=== PATIENT | female | born 1940 | race Caucasian/White ===

== ENCOUNTER → 2016-09-02 | Outpatient (CLI) | payer OTHER ==
[2016-09-02 15:16] LABS: BILIRUBIN,TOTAL 1.1 mg/dL (0.3-1.2); BUN/CREATININE RATIO 17.5 (6-20); CALCIUM 9.1 mg/dL (8.7-10.7); CREATININE 1.2 mg/dL (0.50-1.20); POTASSIUM 4.3 meq/L (3.8-5.2); TOTAL PROTEIN 6.3 g/dL (6.1-8.0)
== END ==
LOC: LAB 14:14
PROVIDERS: ATTEND Internal Medicine
DX: K74.69 Other cirrhosis of liver (principal); I10 Essential (primary) hypertension
CPT/HCPCS: 36415; 80053; 82105

== ENCOUNTER → 2016-10-21 | Outpatient (CLI) | payer OTHER ==
[2016-10-21 08:03] LABS: BASOPHILS # (AUTO) 0.06 10*3/UL; BASOPHILS % (AUTO) 1.6 % (0-1); EOSINOPHILS # (AUTO) 0.19 10*3/UL; EOSINOPHILS % (AUTO) 5.2 % (0-8); HEMATOCRIT 33.4 % (37.0-47.0); HEMOGLOBIN 11.2 g/dL (12.0-16.0); MEAN CORPUSCULAR HEMOGLOBIN 32.5 PG (27-31); MEAN CORPUSCULAR HGB CONC 33.5 g/dL (33-37); MEAN CORPUSCULAR VOLUME 96.8 FL (81-99); MEAN PLATELET VOLUME 8.9 FL (7.4-12.2); MONOCYTES # (AUTO) 0.63 10*3/UL (0.3-0.8); MONOCYTES % (AUTO) 17.2 % (5-15); NEUTROPHILS # (AUTO) 1.87 10*3/UL; NEUTROPHILS % (AUTO) 51.1 % (50-80); PLATELET MORPHOLOGY COMMENT NORMAL MORPHOLOGY (NORM); RBC MORPHOLOGY COMMENT NORMAL MORPHOLOGY (NORM); RED BLOOD COUNT 3.45 10^6/uL (4.20-5.40); WBC MORPHOLOGY COMMENT NORMAL MORPHOLOGY (NORM)
== END ==
LOC: LAB 07:51
PROVIDERS: ATTEND Internal Medicine
DX: K74.69 Other cirrhosis of liver (principal); E03.9 Hypothyroidism, unspecified; I10 Essential (primary) hypertension
CPT/HCPCS: 36415; 85025; 99214; G0463

== ENCOUNTER → 2017-01-11 | Outpatient (CLI) | payer OTHER ==
[2017-01-11 08:12] LABS: BASOPHILS # (AUTO) 0.08 10*3/UL; BASOPHILS % (AUTO) 1.9 % (0-1); EOSINOPHILS # (AUTO) 0.25 10*3/UL; EOSINOPHILS % (AUTO) 5.9 % (0-8); HEMATOCRIT 35.5 % (37.0-47.0); HEMOGLOBIN 11.9 g/dL (12.0-16.0); LYMPHOCYTES # (AUTO) 0.96 10*3/uL; MEAN CORPUSCULAR HEMOGLOBIN 32.3 PG (27-31); MEAN CORPUSCULAR HGB CONC 33.5 g/dL (33-37); MEAN CORPUSCULAR VOLUME 96.5 FL (81-99); MEAN PLATELET VOLUME 9.2 FL (7.4-12.2); MONOCYTES # (AUTO) 0.73 10*3/UL (0.3-0.8); MONOCYTES % (AUTO) 17.3 % (5-15); RED BLOOD COUNT 3.68 10^6/uL (4.20-5.40)
[2017-01-11 08:16] LABS: PLATELET MORPHOLOGY COMMENT NORMAL MORPHOLOGY (NORM); RBC MORPHOLOGY COMMENT NORMAL MORPHOLOGY (NORM); WBC MORPHOLOGY COMMENT NORMAL MORPHOLOGY (NORM)
[2017-01-11 08:21] LABS: BUN/CREATININE RATIO 18.33 (6-20); SERUM ALBUMIN 2.9 g/dL (3.5-4.8)
--- NOTE | 2017-01-11 10:20 | DI ---
CT ABD W/WO CN AND PELVIS W/W0,01/11/2017 7:47 AM: Clinical History: Liver cell carcinoma. Previous Exam: January 03, 2016 Findings: The lung bases are clear. The liver is shrunken and irregular consistent with severe cirrhosis. [address] is performed, and demonstrates no abnormally enhancing lesion. There are multiple ar eas where the hepatic arteries are prominent, but this is a normal finding in a patient with portal h ypertension as vascular flow to the liver is impeded. There is recanalization of the umbilical vein. There is a large amount of ascites throughout the abdomen. The spleen, pancreas, adrenals and kidneys are unremarkable. Diffuse degenerative changes of the spin e are seen. There are prominent small bowel loops. The uterus and adnexa are unremarkable. A few peripheral vascular calcifications are seen. 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 Degenerative changes of the spine are seen. The aorta and its major branches are grossly normal. Impression: 1. Hepatic cirrhosis and a large amount of abdominal ascites with portal hypertension and multiple ve nous collaterals. 2. No evidence of hepatocellular carcinoma on this exam.
== END ==
LOC: CT 07:42
DX: C22.0 Liver cell carcinoma (principal)
CPT/HCPCS: 36415; 74178; 80053; 82105; 85025; 85610

== ENCOUNTER 2017-05-27 13:17 | Inpatient (IN) ==
[2017-05-27] MEDS ORDERED: ONDANSETRON 4 MG/2 ML VIAL IVP ONE ×2 (13:40→14:44)
[2017-05-27] MEDS ORDERED: MORPHINE SULFATE 4 MG/1 ML IVP ONE (13:40)
--- NOTE | 2017-05-27 13:43 | PDOC ---
Abdomen/Flank HPI - General Chief Complaint: Abdomen Pain Stated Complaint: abdominal pain Date Seen by Provider: 05/27/17 Time Seen by Provider: 13:30 Source: POSITIVE: Patient Exam Limitations: POSITIVE: No limitations Nurse's Notes Reviewed & Considered: Yes - History of Present Illness Initial Comments: This is a pleasant 77-year-old female complaining of left upper quadrant abdominal pain with distention. Patient has increasing abdominal distention with nausea and abdominal pain of the left upper quadrant. She has a history of hepatoma and unknown procedures. She denies any headache, no cough, no chest pain or shortness of breath, no hematuria dysuria, no rashes. Body Location Affected: REPORTS: Abdomen Timing: REPORTS: Gradual Duration: Unknown Severity: Moderate Quality: REPORTS: "Pain" Abdominal Pain Onset Location: REPORTS: Generalized abdomen Abdominal Pain Radiation: REPORTS: LUQ Context: REPORTS: None Modifying Factors: improves with: Nothing Associated Symptoms: REPORTS: Nausea Similar Symptoms Previously: Yes Recent Care Received: REPORTS: Denies Any Prior Injuries Related to Current Complaint?: No - Patient Home Medications Home Medications: Home Medications Bacillus Coagulans [Digestive Advantage] 1 ea PO DAILY tab 02/10/16 famotidine 20 mg tablet 20 mg PO QDAY tab 04/19/17 levothyroxine 50 mcg tablet 50 mcg PO QDAY #90 tab 04/19/17 multivit with syvcswfx-ivgx-WD-lutein 8 mg iron-400 mcg-300 mcg tablet 1 tab PO QDAY tab 04/19/17 spironolactone 50 mg tablet 50 mg PO QDAY #90 tab 04/19/17 - Patient Allergies Allergies/Adverse Reactions: Allergies 3 Allergy/AdvReac Type Severity Reaction Status Date / Time Sulfa (Sulfonamide Allergy Intermediate HIVES Verified 05/27/17 17:47 Antibiotics) Past Medical History - heen HEENT History: Hard of Hearing, Dentures/Partials Additional HEENT History: BILAT HEARING AIDS Cardiovascular History: Hypertension Respiratory History: Denies History Gastrointestinal History: GERD, Gallbladder Disease, Other (please comment) Additional Gastrointestinal History: Non-alcohol related cirrhosis. 2011 GALLSTONE PANCREATITIS. BLACK STOOL Genitourinary History: Denies History Endocrine History: Hypothyroidism Musculoskeletal History: Denies History Prosthesis or Implant: No Neurological History: Denies History Blood Disorders: Denies History Additional Blood Disorders History: HX OF HEMACHROMATOSIS/ HX OF HEPATITIS Psychiatric History: Denies History History of Sexually Transmitted Diseases: No Cancer History: Denies History In Past Year Been Physically Harmed or Verbally Threatened: No History of MDRO: No History of Other Communicable Diseases: No Tobacco Use: Never Smoker Alcohol Use: None In the Past 12 Months, Have Used or Abuse Any Substance: None Previous Surgical History: Yes Type / Date of Surgery: LEEP, DAVID/ COLONOSCOPY/ EGD/ CYST REMOVED FROM THROAT / TONSILLECTOMY Anesthesia Reactions: No Malignant Hyperthermia: No Significant Family History: Asthma, Heart disease, COPD, Hypertension, Lung disease ROS - Limitations ROS Limitations: No Limitations Constitution: REPORTS: Denies Symptoms Cardiovascular: REPORTS: Denies Cardiac Symptoms Respiratory: REPORTS: Denies Resp Symptoms Neurological: REPORTS: Denies Neuro Symptoms Gastrointestinal: REPORTS: Abdominal Pain, Nausea, Other (Distention) Endocrine: REPORTS: Denies Symptoms Musculoskeletal: REPORTS: Denies MS Symptoms Genitourinary: REPORTS: Denies Symptoms Eyes: REPORTS: Denies Symptoms ENT: REPORTS: Denies Symptoms Skin: REPORTS: Denies Skin Symptoms Lympathic: REPORTS: Denies Lympathic Symptoms Immunologic: POSITIVE: Denies Symptoms Psychiatric: POSITIVE: Denies Psych Symptoms Abdominal/Flank Pain PE - General Appearance General Appearance: POSITIVE: Alert, Cooperative, No Acute Distress, No Evidence of Trauma - HEENT HEENT: POSITIVE: Head Inspection Nml, Eyes Inspection Nml, Ears Inspection Nml, Nose Inspection Nml, Oral/Dental Inspect. Nml, Pharynx Inspect. Nml, PERRL, EOMI - Neck Neck: POSITIVE: Normal Inspection, No Apparent Injury - Respiratory Respiratory: POSITIVE: No Respiratory Distress, Breath Sounds Normal, Chest Non- Tender - Cardiovascular Cardiovascular: POSITIVE: Regular Rate and Rhythm, Heart Sounds Normal, Strong Pulses Peripheral Pulses: Radial (L): 4+ - Chest Chest: POSITIVE: Non Tender - Abdomen Abdomen: Normal Bowel Sounds: (All Quadrants), Denies Tenderness: (RUQ), (RLQ), (LLQ), No Splenomegaly: (All Quadrants), No Guarding: (All Quadrants), No Rebound: (All Quadrants), No Palpable Pulse: (All Quadrants), No Palpabale Mass : (All Quadrants), Tenderness Noted: (LLQ), Distention: (All Quadrants) - Back Back: POSITIVE: Normal Inspection - Skin Skin: POSITIVE: Intact, Normal For Race, Warm, Dry, No Rash - Extremities Extremity: Non-Tender: (All Extremities), Normal ROM: (All Extremities), Normal Inspection: (All Extremities), Pelvis Stable: (All Extremities) - Neurological Neurological: POSITIVE: Oriented X3, Motor Normal, Sensation Normal - Psychological Psychiatric: POSITIVE: Affect Appropriate, Mood Appropriate Abdomen Progress - Results Reviewed by me Xrays/CTs/US Reviewed by me: Yes Discussed with Radiologist: Yes Lab Results Reviewed by Me: Yes CBC and BMP: 05/27/17 13:45 05/27/17 13:45 - Patient's Progress Pain Medication Addressed: POSITIVE: Yes Status: POSITIVE: Improved MDM / ED Course: Patient was evaluated, IV started, blood drawn and sent to the lab for studies, CT examination of her abdomen and pelvis was obtained. Findings: CT scan shows massive ascites and anasarca. CBC shows anemia and thrombocytopenia. Gamma GT is elevated, AST and ALT are elevated. Bilirubin is 1.8. Lipase and amylase are normal. INR is normal. Assessment: Ascites. Plan: Admission, plan for paracentesis. - Consult Consult (If Yes, Name of Consulting MD & Time Called): Yes (Dr. Allison, 16:30) Consulting MD will see pt:: POSITIVE: [facility] [place] Admit Counseled: POSITIVE: Patient, Family, RE: Lab Results, RE: Radiology Results, RE : DX Patient Care Time - Estimated PCT Patient Care Time (In Minutes): 30 Vital Signs - Recent Vital Signs Vital Signs: Vital Signs (Last 8 hours) Temp Pulse Resp BP Pulse Ox 05/27/17 13:22 96.8 F 95 18 139/99 95 - VS Reviewed Vital Signs Reviewed: Yes Discharge Clinical Impression: Hepatic cirrhosis, Ascites, Abdominal pain Discharge Disposition: Admit to Inpatient Condition: Fair Date Decision to Admit to Inpatient: 05/27/17 Time Decision to Admit to Inpatient: 16:31
[2017-05-27 13:47] LABS: BASOPHILS # (AUTO) 0.09 10*3/UL; BASOPHILS % (AUTO) 1.8 % (0-1); EOSINOPHILS # (AUTO) 0.21 10*3/UL; EOSINOPHILS % (AUTO) 4.1 % (0-8); Hematocrit [HCT] 32.3 % (37.0-47.0); Hemoglobin [HGB] 10.9 g/dL (12.0-16.0); LYMPHOCYTES # (AUTO) 1.09 10*3/uL; MEAN CORPUSCULAR HEMOGLOBIN 32.5 PG (27-31); MEAN CORPUSCULAR HGB CONC 33.7 g/dL (33-37); MEAN CORPUSCULAR VOLUME 96.4 FL (81-99); MEAN PLATELET VOLUME 9.2 FL (7.4-12.2); MONOCYTES % (AUTO) 19.5 % (5-15); NEUTROPHILS # (AUTO) 2.72 10*3/UL; NEUTROPHILS % (AUTO) 53.1 % (50-80); RED BLOOD COUNT 3.35 10^6/uL (4.20-5.40)
[2017-05-27 14:02] LABS: RBC MORPHOLOGY COMMENT NORMAL MORPHOLOGY (NORM)
[2017-05-27 14:03] LABS: PLATELET MORPHOLOGY COMMENT NORMAL MORPHOLOGY (NORM); WBC MORPHOLOGY COMMENT NORMAL MORPHOLOGY (NORM)
[2017-05-27 14:04] LABS: BLOOD UREA NITROGEN 19 mg/dL (7-22); BUN/CREATININE RATIO 17.27 (6-20); GAMMA GLUTAMYL TRANSPEPTIDASE 99 IU/L (8-78); LIPASE 270 IU/L (23-300); MAGNESIUM 1.9 mg/dL (1.6-2.4); SERUM ALBUMIN 2.6 g/dL (3.5-4.8)
--- NOTE | 2017-05-27 15:32 | DI ---
CT ABDOMEN SCAN WITH IV CONTRAST, 05/27/2017 1:40 PM : Clinical History: Abdominal pain with distention. The history on the previous exam indicated the jamila ent had liver cell carcinoma. Previous Exam: 04/21/2017. Scans are performed from the lower lung bases through the liver and kidneys with IV contrast. 55 ml o f Isovue 300 was injected IV. The lung bases are clear. The liver is small and has a nodular pattern. The overall size is similar t o the previous exam. In the distal portion of the left lower liver, calcific densities are present an d these may actually represent iatrogenic embolic material for treatment of the liver cell cancer. No new lesion is seen in the liver. The patient is status post cholecystectomy. There is mild splenomeg ruslan but the spleen appears normal and the portal vein is patent. No esophageal, gastric, or splenic v arices are seen. There is a large varix between the portal vein extending through the region of the f alciform ligament and then into the abdominal wall. The adrenal glands and the pancreas are normal. B oth kidneys are normal in size, shape, position and contour. There is no hydronephrosis or hydrourete r. No renal or ureteral calculi are present. There are no abnormal retrocrural or periaortic nodes. M assive ascites is present in the amount is greater than on the previous study. The patient has also d eveloped anasarca since the last exam. READIN. Massive ascites with interval development of anasarca. 2. Small nodular liver consistent with cirrhosis. The patient may have had iatrogenic embolization o f a liver tumor in the left lobe. The portal vein is patent. No splenic or obvious gastric or esophag eal varices are seen but there is a large varix extending from the anterior abdominal wall into the l eft through the falciform ligament and then joining the portal vein. There is mild splenomegaly. CT PELVIS SCAN WITH IV CONTRAST, 05/27/2017 1:40 PM: Clinical History: See above. Previous Exam: 04/21/2017. Scans are performed from just superior to the umbilicus to the symphysis pubis with IV contrast. This is the same bolus of contrast used for the CT scans of the abdomen. Massive ascites is present and this is greater than on the previous exam. The appendix is not identif ied with certainty but there is no inflammatory mass either in the cecum or in the right lower quadra nt. The small bowel, terminal ileum, and ileocecal valve are normal. The colon is also normal. There are no hernias. The uterus and both ovaries are atrophic but normal. READING: Massive ascites. This has increased since the last exam.
[2017-05-27] MEDS ORDERED: CALCIUM CARBONATE 500 MG (TUMS) CHEWABLE TABLET PO PRN (17:32)
[2017-05-27] MEDS ORDERED: DOCUSATE 100 MG CAPSULE PO PRN (17:32)
[2017-05-27] MEDS ORDERED: NORMAL SALINE 10 ML SYRINGE FLUSH IVP PRN (17:32)
[2017-05-27] MEDS ORDERED: ONDANSETRON 4 MG/2 ML VIAL IVP PRN (17:32)
[2017-05-27] MEDS ORDERED: LIDOCAINE W/ SODIUM BICARB 0.5 ML SYR SUBD PRN (17:32)
[2017-05-27] MEDS ORDERED: Albumin Human Soln 25% 25 GM/100 ML IV.SOLN IV ONE (21:27)
[2017-05-27 21:36] LABS: WBC, BODY FLUID 0.079 10*3/uL
--- NOTE | 2017-05-27 22:13 | PDOC ---
HPI - History of Present Illness Date and Time of Service: 05/27/2017, 2210 Chief Complaint: Abdominal pain History of Present Illness: This very pleasant 77 year old female with history of cryptogenic cirrhosis and liver cancer treated with radiation who came in with worsening abdominal pain and sharp discomfort on the left side. She had a CT scan in the emergency room of the abdomen and pelvis that showed increase in the amount of ascites from April. The patient denied any fever, nausea, vomiting, diarrhea, or constipation. She has not had any blood in the stool. She had a paracentesis a couple of years ago in December 2015 and apparently they took about 900 mL off on my review of the record. She has not had problems with ascites since that time to her knowledge. She is on spironolactone. She recently saw her liver specialist, Dr. Montes De Oca at [facility] in [place], and was told that she should revisit him in about a year. She is not on any active transplant liver list at this time. The patient has a meld score of 12, and has not had any problems with encephalopathy or other complications of liver disease. Past Medical History Medical History: 1. 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 2. Hypertensive gastropathy. 3. Gastritis. 4. Hypertension. 5. By CT scan tonight with stomach varices, patient likely has portal hypertension as well. I have. 6. Hypothyroidism. 7. Liver cancer, status post radiation therapy in [place] Surgical History: History of previous cholecystectomy. Liver biopsy Family History: Reviewed an Not Pertinent Pertinent Family History: No family history of heart disease Past Social History: Does not smoke or drink. 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 Has healthy children. Is . Tobacco Use: Never Smoker In the Past 12 Months, Have Used or Abuse Any of the Following Substance: None Alcohol Use: None Medication / Allergies Home Medications: Home Medications Medication Instructions Recorded Confirmed Type Bacillus Coagulans [Digestive 1 ea PO DAILY tab 02/10/16 05/27/17 History Advantage] famotidine 20 mg tablet 20 mg PO QDAY tab 04/19/17 05/27/17 History levothyroxine 50 mcg tablet 50 mcg PO QDAY #90 tab 04/19/17 05/27/17 Rx multivit with 1 tab PO QDAY tab 04/19/17 05/27/17 History mhavkjcy-gdxt-TK-lutein 8 mg iron-400 mcg-300 mcg tablet spironolactone 50 mg tablet 50 mg PO QDAY #90 tab 04/19/17 05/27/17 Rx Allergies/Adverse Reactions: Allergies 3 Allergy/AdvReac Type Severity Reaction Status Date / Time Sulfa (Sulfonamide Allergy Intermediate HIVES Verified 05/27/17 17:47 Antibiotics) Review of Systems - Review of Systems All Systems: Reviewed & No Additional Complaints Except as Stated (I did a 12 point review systems and it was negative other than that discussed above in history present illness. The only other symptom the patient really complained of was some mild edema in her lower extremities.) Exam - Vitals Vital Signs: Vital Signs Temperature 98.3 F Temperature Source Oral Pulse Rate [Pulse Oximeter 79 Left] Pulse Rate 74 Respiratory Rate 20 Blood Pressure [Left Arm] 123/43 Blood Pressure 115/67 Pulse Ox 97 Oxygen Flow Rate 2 Oxygen Delivery Method Nasal Cannula Height 4 ft 11 in Weight 129 lb 9.6 oz - General General Appearance: No Acute Distress, Cooperative - Head Head Exam: Normal Inspection, Normocephalic, Atraumatic - Eye Eye Exam: POSITIVE: No Scleral Icterus - ENT ENT Exam: POSITIVE: Mucous Membranes Moist - Neck Neck Exam: Normal Inspection, No Tenderness, No Lymphadenopathy, No Thyromegaly - Respiratory Respiratory Exam: POSITIVE: Breathing Non Labored, Normal to Percussion and Palpation, Coarse Breath Sounds (In the bases bilaterally) - Cardiovascular Cardiovascular Exam: POSITIVE: RRR, No Murmur, No Clicks, No Gallops, No Rubs, No JVD - GI/Abdominal GI/Abdominal Exam: POSITIVE: Normal Bowel Sounds, Positive for Ascites Additional GI/Abdominal Exam Details: Positive for ascites and some mild tenderness in left upper quadrant with palpation. - Rectal Rectal Exam: POSITIVE: Deferred - External Exam: POSITIVE: Deferred Exam: POSITIVE: Deferred - Extremities Extremities Exam: POSITIVE: No Clubbing Present, No Cyanosis Present Additional Extremities Exam Details: Has trace lower extremity edema bilaterally. - Back Back Exam: POSITIVE: No CVA Tenderness - Neurological Neurological Exam: POSITIVE: Alert, Oriented x 3, No Facial Droop, Speech Intact / Clear, Moves All Extremities Equally - Psychiatric Psychiatric Exam: POSITIVE: Normal Affect, Normal Mood - Central Line Examination Central Line Present on Admission: No Results - Labs CBC and BMP: 05/27/17 13:45 05/27/17 13:45 Additional Lab Results: Laboratory Results 05/27/17 05/27/17 05/27/17 Range/Units 13:45 13:45 13:45 WBC 5.12 (4.8-10.8) 10^3/uL RBC 3.35 L (4.20-5.40) 10^6/uL Hgb 10.9 L (12.0-16.0) g/dL Hct 32.3 L (37.0-47.0) % MCV 96.4 (81-99) FL MCH 32.5 H (27-31) PG MCHC 33.7 (33-37) g/dL RDW Std Deviation 54.9 H (39-50) fL RDW Coeff of Jacki 16.2 H (11.5-14.5) % Plt Count 134 L (140-350) 10*3/uL MPV 9.2 (7.4-12.2) FL Immature Gran % (Auto) 0.2 (0-5) % Neut % (Auto) 53.1 (50-80) % Lymph % (Auto) 21.3 (10-50) % Ellis % (Auto) 19.5 H (5-15) % Eos % (Auto) 4.1 (0-8) % Baso % (Auto) 1.8 H (0-1) % Immature Gran # (Auto) 0.01 10*3/UL Neut # (Auto) 2.72 10*3/UL Lymph # (Auto) 1.09 10*3/uL Ellis # (Auto) 1.00 H (0.3-0.8) 10*3/UL Eos # (Auto) 0.21 10*3/UL Baso # (Auto) 0.09 10*3/UL WBC Morphology Comment Normal morphology (NORM) Plt Morphology Comment Normal morphology (NORM) RBC Morph Comment Normal morphology (NORM) PT 13.7 H (9.7-11.4) secs INR 1.29 (0.00-5.90) N/A Sodium 137 (135-145) meq/L Potassium 4.0 (3.8-5.2) meq/L Chloride 107 (98-112) meq/L Carbon Dioxide 23 (23-33) meq/L Anion Gap 7 (5-20) BUN 19 (7-22) mg/dL Creatinine 1.1 (0.50-1.20) mg/dL BUN/Creatinine Ratio 17.27 (6-20) Glucose 100 (78-110) mg/dL Calculated Osmolality 285.0 (267-292) mOsm/kg Calcium 8.8 (8.7-10.7) mg/dL Magnesium 1.9 (1.6-2.4) mg/dL Total Bilirubin 1.8 H (0.3-1.2) mg/dL GGT 99 H (8-78) IU/L AST 116 H (8-39) IU/L ALT 54 H (9-52) IU/L Alkaline Phosphatase 164 H (38-126) IU/L Total Protein 6.7 (6.1-8.0) g/dL Albumin 2.6 L (3.5-4.8) g/dL Globulin 4.1 (2.50-4.10) g/dL Albumin/Globulin Ratio 0.60 L (1.3-2.0) mg/g Amylase 101 (30-110) U/L Lipase 270 (23-300) IU/L Fluid WBC 10*3/uL Fluid RBC 10*6/uL Fluid Polynuclear WBCs % Fluid Mononuclear WBCs % Peritoneal Color Peritoneal Appearance Peritoneal Volume mL 05/27/17 Range/Units 21:25 WBC (4.8-10.8) 10^3/uL RBC (4.20-5.40) 10^6/uL Hgb (12.0-16.0) g/dL Hct (37.0-47.0) % MCV (81-99) FL MCH (27-31) PG MCHC (33-37) g/dL RDW Std Deviation (39-50) fL RDW Coeff of Jacki (11.5-14.5) % Plt Count (140-350) 10*3/uL MPV (7.4-12.2) FL Immature Gran % (Auto) (0-5) % Neut % (Auto) (50-80) % Lymph % (Auto) (10-50) % Ellis % (Auto) (5-15) % Eos % (Auto) (0-8) % Baso % (Auto) (0-1) % Immature Gran # (Auto) 10*3/UL Neut # (Auto) 10*3/UL Lymph # (Auto) 10*3/uL Ellis # (Auto) (0.3-0.8) 10*3/UL Eos # (Auto) 10*3/UL Baso # (Auto) 10*3/UL WBC Morphology Comment (NORM) Plt Morphology Comment (NORM) RBC Morph Comment (NORM) PT (9.7-11.4) secs INR (0.00-5.90) N/A Sodium (135-145) meq/L Potassium (3.8-5.2) meq/L Chloride (98-112) meq/L Carbon Dioxide (23-33) meq/L Anion Gap (5-20) BUN (7-22) mg/dL Creatinine (0.50-1.20) mg/dL BUN/Creatinine Ratio (6-20) Glucose (78-110) mg/dL Calculated Osmolality (267-292) mOsm/kg Calcium (8.7-10.7) mg/dL Magnesium (1.6-2.4) mg/dL Total Bilirubin (0.3-1.2) mg/dL GGT (8-78) IU/L AST (8-39) IU/L ALT (9-52) IU/L Alkaline Phosphatase (38-126) IU/L Total Protein (6.1-8.0) g/dL Albumin (3.5-4.8) g/dL Globulin (2.50-4.10) g/dL Albumin/Globulin Ratio (1.3-2.0) mg/g Amylase (30-110) U/L Lipase (23-300) IU/L Fluid WBC 0.079 10*3/uL Fluid RBC 0.002 10*6/uL Fluid Polynuclear WBCs 16.5 % Fluid Mononuclear WBCs 83.5 % Peritoneal Color Clear Peritoneal Appearance Clear Peritoneal Volume 16 mL - Imaging Status: Image Reviewed by Me (I looked at the CT scan, it's positive for small, nodular liver. There is ascites present.) Assessment and Plan - Patient Problems (1) Hepatic cirrhosis Current Visit: No Status: Acute Code(s): K74.60 - Unspecified cirrhosis of liver Qualifiers: Hepatic cirrhosis type: unspecified hepatic cirrhosis Ascites presence: with ascites Qualified Code(s): K74.60 - Unspecified cirrhosis of liver (2) Ascites Current Visit: Yes Status: Acute Code(s): R18.8 - Other ascites Qualifiers: Ascites type: other type Qualified Code(s): R18.8 - Other ascites (3) Liver cancer Current Visit: Yes Status: Suspected Code(s): C22.9 - Malignant neoplasm of liver, not specified as primary or secondary Qualifiers: Liver malignancy type: hepatocellular carcinoma Qualified Code(s): C22.0 - Liver cell carcinoma (4) Hypothyroidism Current Visit: No Status: Acute Code(s): E03.9 - Hypothyroidism, unspecified Qualifiers: Hypothyroidism type: acquired Qualified Code(s): E03.9 - Hypothyroidism, unspecified - Assessment / Plan Additional Assessment/Plan Details: Admit the patient. We discussed paracentesis, risks and benefits, see procedure note which is separate and unique of this documentation and has no overlap in terms of time. Make sure the patient doesn't have spontaneous bacterial peritonitis. Fluid studies suggest at this point that that is not the case. Also test for cytology. Change diuretics to Lasix and spironolactone at a 20 mg of Lasix to 50 mg of spironolactone ratio. Add propranolol with noted there is see on CT scan of abdomen and pelvis. Give albumin post-paracentesis today. We'll try to discuss with transplant hepatology team tomorrow, and see if they have any further recommendations. Check alpha-fetoprotein. I did discuss the above plan with the patient, and her family members. They agree with the plan. Her son and [id number] were present. The patient is full code.
--- NOTE | 2017-05-27 22:24 | PROCEDURE1 ---
Procedure - - Date and Time of Service: 05/27/2017, 2224 Procedure Performed: Paracentesis : With Imaging Procedure Note: Procedure performed: Paracentesis Consent was obtained from the patient. Indication for procedure was the following: Indication for procedure: [Ascites/cirrhosis/history of liver cancer/abdominal pain, question SBP] Description of procedure: The patient was prepped and draped in the usual fashion after ultrasound guidance helped us isolate the largest ascites pocket we could find. In this case it was located at [right mid and lower quadrant], and this was marked with the procedure marker. Chlorhexidine was used to cleanse the skin. Lidocaine was used for local anesthesia. A #10 blade was then used perform a small dermatotomy. A fenestrated catheter with a surrounding large-bore needle was then inserted using a Z-line approach with a 60 mL syringe attached. When withdrawing on the 60 mL syringe, peritoneal fluid was noted and 40 mL was drawn and then removed along with the large bore needle. The catheter was left in peritoneal space. Peritoneal fluid in the syringe was sent for analysis in a purple top, green top, and red top tube, and Vacutainer bottles. The fluid appeared [clear and yellow] on my view. A total of [480 mL] was withdrawn via Vacutainer bottles. The catheter was then withdrawn. The insertion site was dressed with gauze and Tegaderm, with no evidence of peritoneal leak or blood loss. I did check the left quadrant again and very small fluid pockets were noted. Despite multiple position changes, we cannot get the patient to drain any further during the procedure. We also applied pressure to the abdomen to try and get further fluid out and that did not work. Anesthesia: Local with lidocaine. Estimated blood loss: None Disposition: Patient is admitted to the hospital on the medical floor. Complications: None apparent at time of procedure. Fluid studies do not support spontaneous bacterial peritonitis post procedure.
[2017-05-28] MEDS: LEVOTHYROXINE 50 MCG TABLET PO SCH (04:45)
[2017-05-28 06:43] LABS: BASOPHILS # (AUTO) 0.03 10*3/UL; BASOPHILS % (AUTO) 0.7 % (0-1); EOSINOPHILS % (AUTO) 2.2 % (0-8); Hematocrit [HCT] 26.8 % (37.0-47.0); Hemoglobin [HGB] 8.8 g/dL (12.0-16.0); LYMPHOCYTES # (AUTO) 0.79 10*3/uL; MEAN CORPUSCULAR HEMOGLOBIN 31.9 PG (27-31); MEAN CORPUSCULAR HGB CONC 32.8 g/dL (33-37); MEAN CORPUSCULAR VOLUME 97.1 FL (81-99); MEAN PLATELET VOLUME 9.6 FL (7.4-12.2); MONOCYTES # (AUTO) 0.71 10*3/UL (0.3-0.8); MONOCYTES % (AUTO) 15.4 % (5-15); NEUTROPHILS # (AUTO) 2.96 10*3/UL; NEUTROPHILS % (AUTO) 64.3 % (50-80); RED BLOOD COUNT 2.76 10^6/uL (4.20-5.40)
[2017-05-28 07:12] LABS: BLOOD UREA NITROGEN 23 mg/dL (7-22); SERUM ALBUMIN 2.4 g/dL (3.5-4.8)
[2017-05-28 07:15] LABS: PLATELET MORPHOLOGY COMMENT NORMAL MORPHOLOGY (NORM); RBC MORPHOLOGY COMMENT NORMAL MORPHOLOGY (NORM); WBC MORPHOLOGY COMMENT NORMAL MORPHOLOGY (NORM)
[2017-05-28] MEDS: FUROSEMIDE 20 MG TABLET PO SCH (07:56)
[2017-05-28] MEDS: Spironolactone Tab 50 MG TAB PO SCH (08:11)
[2017-05-28] MEDS: ACIDOPHILUS/BULGARICUS CHEWABLE TABLET PO SCH (08:12)
[2017-05-28] MEDS: FAMOTIDINE 20 MG TABLET PO SCH (08:12)
[2017-05-28] MEDS: Propranolol Tab 10 MG TAB PO SCH ×3 (08:12→20:32)
[2017-05-28] MEDS: Multivitamin Tab 1 TAB PO SCH (08:12)
--- NOTE | 2017-05-28 18:57 | PDOC(PROG) ---
Date and Time of Service: 05/28/2017, 1852 Interval History: no chest pain, no shortness of breath. abdomen more comfortable, leak slowing down Objective : Data - Labs CBC and BMP: 05/28/17 05:19 05/28/17 05:19 Additional Lab Results: Laboratory Results 05/27/17 05/28/17 05/28/17 Range/Units 21:25 05:19 05:19 WBC 4.60 L (4.8-10.8) 10^3/uL RBC 2.76 L (4.20-5.40) 10^6/uL Hgb 8.8 L (12.0-16.0) g/dL Hct 26.8 L (37.0-47.0) % MCV 97.1 (81-99) FL MCH 31.9 H (27-31) PG MCHC 32.8 L (33-37) g/dL RDW Std Deviation 55.2 H (39-50) fL RDW Coeff of Jacki 16.3 H (11.5-14.5) % Plt Count 100 L (140-350) 10*3/uL MPV 9.6 (7.4-12.2) FL Immature Gran % (Auto) 0.2 (0-5) % Neut % (Auto) 64.3 (50-80) % Lymph % (Auto) 17.2 (10-50) % [place] % (Auto) 15.4 H (5-15) % Eos % (Auto) 2.2 (0-8) % Baso % (Auto) 0.7 (0-1) % Immature Gran # (Auto) 0.01 10*3/UL Neut # (Auto) 2.96 10*3/UL Lymph # (Auto) 0.79 10*3/uL [place] # (Auto) 0.71 (0.3-0.8) 10*3/UL Eos # (Auto) 0.10 10*3/UL Baso # (Auto) 0.03 10*3/UL WBC Morphology Comment Normal morphology (NORM) Plt Morphology Comment Normal morphology (NORM) RBC Morph Comment Normal morphology (NORM) PT 14.4 H (9.7-11.4) secs INR 1.35 (0.00-5.90) N/A Sodium (135-145) meq/L Potassium (3.8-5.2) meq/L Chloride (98-112) meq/L Carbon Dioxide (23-33) meq/L Anion Gap (5-20) BUN (7-22) mg/dL Creatinine (0.50-1.20) mg/dL BUN/Creatinine Ratio (6-20) Glucose (78-110) mg/dL Calculated Osmolality (267-292) mOsm/kg Calcium (8.7-10.7) mg/dL Total Bilirubin (0.3-1.2) mg/dL AST (8-39) IU/L ALT (9-52) IU/L Alkaline Phosphatase (38-126) IU/L Total Protein (6.1-8.0) g/dL Albumin (3.5-4.8) g/dL Globulin (2.50-4.10) g/dL Albumin/Globulin Ratio (1.3-2.0) mg/g Fluid WBC 0.079 10*3/uL Fluid RBC 0.002 10*6/uL Fluid Polynuclear WBCs 16.5 % Fluid Mononuclear WBCs 83.5 % Peritoneal Color Clear Peritoneal Appearance Clear Peritoneal Volume 16 mL 05/28/17 Range/Units 05:19 WBC (4.8-10.8) 10^3/uL RBC (4.20-5.40) 10^6/uL Hgb (12.0-16.0) g/dL Hct (37.0-47.0) % MCV (81-99) FL MCH (27-31) PG MCHC (33-37) g/dL RDW Std Deviation (39-50) fL RDW Coeff of Jacki (11.5-14.5) % Plt Count (140-350) 10*3/uL MPV (7.4-12.2) FL Immature Gran % (Auto) (0-5) % Neut % (Auto) (50-80) % Lymph % (Auto) (10-50) % [place] % (Auto) (5-15) % Eos % (Auto) (0-8) % Baso % (Auto) (0-1) % Immature Gran # (Auto) 10*3/UL Neut # (Auto) 10*3/UL Lymph # (Auto) 10*3/uL [place] # (Auto) (0.3-0.8) 10*3/UL Eos # (Auto) 10*3/UL Baso # (Auto) 10*3/UL WBC Morphology Comment (NORM) Plt Morphology Comment (NORM) RBC Morph Comment (NORM) PT (9.7-11.4) secs INR (0.00-5.90) N/A Sodium 135 (135-145) meq/L Potassium 4.5 (3.8-5.2) meq/L Chloride 109 (98-112) meq/L Carbon Dioxide 20 L (23-33) meq/L Anion Gap 6 (5-20) BUN 23 H (7-22) mg/dL Creatinine 1.0 (0.50-1.20) mg/dL BUN/Creatinine Ratio 23.00 H (6-20) Glucose 87 (78-110) mg/dL Calculated Osmolality 282.0 (267-292) mOsm/kg Calcium 8.5 L (8.7-10.7) mg/dL Total Bilirubin 1.6 H (0.3-1.2) mg/dL AST 91 H (8-39) IU/L ALT 45 (9-52) IU/L Alkaline Phosphatase 118 (38-126) IU/L Total Protein 5.8 L (6.1-8.0) g/dL Albumin 2.4 L (3.5-4.8) g/dL Globulin 3.4 (2.50-4.10) g/dL Albumin/Globulin Ratio 0.70 L (1.3-2.0) mg/g Fluid WBC 10*3/uL Fluid RBC 10*6/uL Fluid Polynuclear WBCs % Fluid Mononuclear WBCs % Peritoneal Color Peritoneal Appearance Peritoneal Volume mL Objective : Exam - General General Appearance: No Acute Distress, Cooperative Additional General Exam Details: Vital Signs (24 hrs) Temp Pulse Resp BP BP Pulse Ox 05/28/17 15:49 98.3 F 61 20 94/42 92 05/28/17 12:40 97.7 F 63 16 95/46 93 05/28/17 07:46 97.4 F 77 16 107/50 93 05/28/17 07:40 77 05/28/17 04:56 93 05/28/17 04:48 97.9 F 76 20 103/44 93 05/28/17 00:10 97.8 F 82 22 127/57 92 05/27/17 21:00 98.3 F 79 20 123/43 97 - Eye Eye Exam: No Scleral Icterus - Respiratory Respiratory Exam: Clear to Auscultation - Bilaterally, Breathing Non Labored - Cardiovascular Cardiovascular Exam: RRR, No Murmur, No Clicks, No Gallops, No Rubs, No JVD - GI/Abdominal GI/Abdominal Exam: Normal Bowel Sounds, Non Tender, Non Distended, Soft - Extremities Extremities Exam: No Clubbing Present, No Cyanosis Present, +1 Edema - Neurological Neurological Exam: Alert, Oriented x 3, No Facial Droop, Speech Intact / Clear, Moves All Extremities Equally Assessment and Plan - Patient Problems (1) Hepatic cirrhosis Current Visit: Yes Status: Acute Code(s): K74.60 - Unspecified cirrhosis of liver Qualifiers: Hepatic cirrhosis type: unspecified hepatic cirrhosis Ascites presence: with ascites Qualified Code(s): K74.60 - Unspecified cirrhosis of liver (2) Ascites Current Visit: Yes Status: Acute Code(s): R18.8 - Other ascites Qualifiers: Ascites type: other type Qualified Code(s): R18.8 - Other ascites (3) Liver cancer Current Visit: Yes Status: Suspected Code(s): C22.9 - Malignant neoplasm of liver, not specified as primary or secondary Qualifiers: Liver malignancy type: hepatocellular carcinoma Qualified Code(s): C22.0 - Liver cell carcinoma (4) Hypothyroidism Current Visit: Yes Status: Chronic Code(s): E03.9 - Hypothyroidism, unspecified Qualifiers: Hypothyroidism type: acquired Qualified Code(s): E03.9 - Hypothyroidism, unspecified (5) Anemia Current Visit: No Status: Acute Code(s): D64.9 - Anemia, unspecified Qualifiers: Anemia type: other cause Other causes of anemia: other cause, not classified Qualified Code(s): D64.89 - Other specified anemias - Assessment / Plan Additional Assessment/Plan Details: I want to see how the patient does with blood pressures in setting of additions of lasix and propranolol check labs in AM. Liver looks to be at a MELD of 11 to 12 or so. got follow up in July for patient in [place] with Dr. 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
[2017-05-29] MEDS: LEVOTHYROXINE 50 MCG TABLET PO SCH (05:14)
[2017-05-29 06:34] LABS: BASOPHILS # (AUTO) 0.05 10*3/UL; BASOPHILS % (AUTO) 1.1 % (0-1); EOSINOPHILS # (AUTO) 0.28 10*3/UL; Hemoglobin [HGB] 9.2 g/dL (12.0-16.0); LYMPHOCYTES # (AUTO) 0.87 10*3/uL; MEAN CORPUSCULAR HEMOGLOBIN 31.8 PG (27-31); MEAN CORPUSCULAR HGB CONC 32.9 g/dL (33-37); MEAN CORPUSCULAR VOLUME 96.9 FL (81-99); MEAN PLATELET VOLUME 9.6 FL (7.4-12.2); MONOCYTES # (AUTO) 0.72 10*3/UL (0.3-0.8); MONOCYTES % (AUTO) 15.5 % (5-15); NEUTROPHILS # (AUTO) 2.73 10*3/UL; NEUTROPHILS % (AUTO) 58.7 % (50-80); RED BLOOD COUNT 2.89 10^6/uL (4.20-5.40)
[2017-05-29 06:46] LABS: BLOOD UREA NITROGEN 24 mg/dL (7-22); BUN/CREATININE RATIO 21.81 (6-20); SERUM ALBUMIN 2.1 g/dL (3.5-4.8)
[2017-05-29 06:59] LABS: PLATELET MORPHOLOGY COMMENT NORMAL MORPHOLOGY (NORM); RBC MORPHOLOGY COMMENT NORMAL MORPHOLOGY (NORM); WBC MORPHOLOGY COMMENT NORMAL MORPHOLOGY (NORM)
[2017-05-29] MEDS: FUROSEMIDE 20 MG TABLET PO SCH (07:23)
[2017-05-29 07:42] VITALS: RESP 20
[2017-05-29] MEDS: Propranolol Tab 10 MG TAB PO SCH (08:58)
[2017-05-29] MEDS: Spironolactone Tab 50 MG TAB PO SCH (08:58)
[2017-05-29] MEDS: ACIDOPHILUS/BULGARICUS CHEWABLE TABLET PO SCH (08:58)
[2017-05-29] MEDS: FAMOTIDINE 20 MG TABLET PO SCH (08:58)
[2017-05-29] MEDS: Multivitamin Tab 1 TAB PO SCH (08:58)
[2017-05-29 13:51] VITALS: BP 106/41; TEMP 98.4; O2SAT 97
--- NOTE | 2017-05-29 15:17 | DCSUMMARY ---
Hospitalization Summary Admit Date: 05/27/17 Discharge Date: 05/29/17 Primary Diagnosis:: cirrhosis with ascites. Hospital Course: This very pleasant 77 year old female that has known cirrhosis, cryptogenic, complicated by ascites on initial diagnosis. The patient has recently seen Dr. Chandler, liver transplant surgeon, and this was in April. She was told at that time that she could wait to see him until the following year. However, over the last few days prior to admission and building up to date of admission, the patient developed worsened abdominal pain and tenderness. She had increased ascites on her CT scan of her abdomen and pelvis. No fevers or chills, but we did do a paracentesis and were able to take off about 480 mL's. It was negative for spontaneous bacterial peritonitis. Cells were sent for cytology but it may not be the best that he has a were not in a heparinized bottle. We have a serum alpha-fetoprotein pending but it is not back yet. The patient got 1 dose of albumin post paracentesis and she has not had pain in her abdomen since that time. We tried doing Lasix in addition to spironolactone at a cirrhosis ratio, but the sodium dipped down to the 130s fairly quickly on this regimen and I do not think she'll be able to tolerate it. In addition the CT scan is now showing some variceal findings in the stomach. So we placed her on propranolol for portal hypertension. At discharge, I'm going to have her continue her spironolactone, but I am going to reduce her propranolol to 5 mg 3 times a day and stop Lasix will be I discussed this with the patient. We will get repeat labs on the , a day prior to her seeing her primary physician Dr. Terry. Today, no complaints of chest pain, shortness breath, nausea or vomiting. Patient would like to go home. Assessment and Plan: 1. As per discharge assessments noted 2. Disposition: Patient is discharged home. 3. Condition on discharge, stable and improved. 4. Diet: regular diet 5. Activities: resume normal activities 6. Follow-Up: 1. Dr. Terry on the 2. Dr. Adithya nino in July 2017 7. Medications at the Time of Discharge: Home Medications Medication Instructions Recorded Confirmed Type Bacillus Coagulans [Digestive 1 ea PO DAILY tab 02/10/16 05/27/17 History Advantage] levothyroxine 50 mcg tablet 50 mcg PO QDAY #90 tab 04/19/17 05/27/17 Rx multivit with 1 tab PO QDAY tab 04/19/17 05/27/17 History pvqjqsuk-qayn-HV-lutein 8 mg iron-400 mcg-300 mcg tablet spironolactone 50 mg tablet 50 mg PO QDAY #90 tab 04/19/17 05/27/17 Rx Propranolol HCl [Inderal] 5 mg PO TID #45 tab 05/29/17 Rx 8. Time, care, counseling and coordination of care for this discharge is greater than 30 minutes. Exam - Vitals Vital Signs: Vital Signs Temperature 98.4 F Temperature Source Oral Pulse Rate [Pulse Oximeter 60 Left] Pulse Rate 74 Respiratory Rate 20 Blood Pressure [Right Arm] 106/41 Blood Pressure [Left Arm] 92/40 Blood Pressure 115/67 Pulse Ox 97 Oxygen Flow Rate 2 Oxygen Delivery Method Room Air Height 4 ft 11 in Weight 130 lb - General General Appearance: No Acute Distress, Cooperative - Head Head Exam: Normal Inspection, Normocephalic, Atraumatic - Eye Eye Exam: POSITIVE: No Scleral Icterus - ENT ENT Exam: POSITIVE: Mucous Membranes Moist - Respiratory Respiratory Exam: POSITIVE: Clear to Auscultation - Bilaterally, Breathing Non Labored - Cardiovascular Cardiovascular Exam: POSITIVE: RRR, No Murmur, No Clicks, No Gallops, No Rubs, No JVD - GI/Abdominal GI/Abdominal Exam: POSITIVE: Normal Bowel Sounds, Non Tender, Non Distended, Soft - Extremities Extremities Exam: POSITIVE: No Clubbing Present, No Cyanosis Present, +1 Edema ( in lower distal extremities) - Neurological Neurological Exam: POSITIVE: Alert, Oriented x 3, No Facial Droop, Speech Intact / Clear, Moves All Extremities Equally Data Perinent Studies: Laboratory Results 05/27/17 05/27/17 05/27/17 Range/Units 13:45 13:45 13:45 WBC 5.12 (4.8-10.8) 10^3/uL RBC 3.35 L (4.20-5.40) 10^6/uL Hgb 10.9 L (12.0-16.0) g/dL Hct 32.3 L (37.0-47.0) % MCV 96.4 (81-99) FL MCH 32.5 H (27-31) PG MCHC 33.7 (33-37) g/dL RDW Std Deviation 54.9 H (39-50) fL RDW Coeff of Jacki 16.2 H (11.5-14.5) % Plt Count 134 L (140-350) 10*3/uL MPV 9.2 (7.4-12.2) FL Immature Gran % (Auto) 0.2 (0-5) % Neut % (Auto) 53.1 (50-80) % Lymph % (Auto) 21.3 (10-50) % [place] % (Auto) 19.5 H (5-15) % Eos % (Auto) 4.1 (0-8) % Baso % (Auto) 1.8 H (0-1) % Immature Gran # (Auto) 0.01 10*3/UL Neut # (Auto) 2.72 10*3/UL Lymph # (Auto) 1.09 10*3/uL [place] # (Auto) 1.00 H (0.3-0.8) 10*3/UL Eos # (Auto) 0.21 10*3/UL Baso # (Auto) 0.09 10*3/UL WBC Morphology Comment Normal morphology (NORM) Plt Morphology Comment Normal morphology (NORM) RBC Morph Comment Normal morphology (NORM) PT 13.7 H (9.7-11.4) secs INR 1.29 (0.00-5.90) N/A Sodium 137 (135-145) meq/L Potassium 4.0 (3.8-5.2) meq/L Chloride 107 (98-112) meq/L Carbon Dioxide 23 (23-33) meq/L Anion Gap 7 (5-20) BUN 19 (7-22) mg/dL Creatinine 1.1 (0.50-1.20) mg/dL BUN/Creatinine Ratio 17.27 (6-20) Glucose 100 (78-110) mg/dL Calculated Osmolality 285.0 (267-292) mOsm/kg Calcium 8.8 (8.7-10.7) mg/dL Magnesium 1.9 (1.6-2.4) mg/dL Total Bilirubin 1.8 H (0.3-1.2) mg/dL GGT 99 H (8-78) IU/L AST 116 H (8-39) IU/L ALT 54 H (9-52) IU/L Alkaline Phosphatase 164 H (38-126) IU/L Total Protein 6.7 (6.1-8.0) g/dL Albumin 2.6 L (3.5-4.8) g/dL Globulin 4.1 (2.50-4.10) g/dL Albumin/Globulin Ratio 0.60 L (1.3-2.0) mg/g Amylase 101 (30-110) U/L Lipase 270 (23-300) IU/L Fluid WBC 10*3/uL Fluid RBC 10*6/uL Fluid Polynuclear WBCs % Fluid Mononuclear WBCs % Peritoneal Color Peritoneal Appearance Peritoneal Volume mL 05/27/17 05/28/17 05/28/17 Range/Units 21:25 05:19 05:19 WBC 4.60 L (4.8-10.8) 10^3/uL RBC 2.76 L (4.20-5.40) 10^6/uL Hgb 8.8 L (12.0-16.0) g/dL Hct 26.8 L (37.0-47.0) % MCV 97.1 (81-99) FL MCH 31.9 H (27-31) PG MCHC 32.8 L (33-37) g/dL RDW Std Deviation 55.2 H (39-50) fL RDW Coeff of Jacki 16.3 H (11.5-14.5) % Plt Count 100 L (140-350) 10*3/uL MPV 9.6 (7.4-12.2) FL Immature Gran % (Auto) 0.2 (0-5) % Neut % (Auto) 64.3 (50-80) % Lymph % (Auto) 17.2 (10-50) % [place] % (Auto) 15.4 H (5-15) % Eos % (Auto) 2.2 (0-8) % Baso % (Auto) 0.7 (0-1) % Immature Gran # (Auto) 0.01 10*3/UL Neut # (Auto) 2.96 10*3/UL Lymph # (Auto) 0.79 10*3/uL [place] # (Auto) 0.71 (0.3-0.8) 10*3/UL Eos # (Auto) 0.10 10*3/UL Baso # (Auto) 0.03 10*3/UL WBC Morphology Comment Normal morphology (NORM) Plt Morphology Comment Normal morphology (NORM) RBC Morph Comment Normal morphology (NORM) PT 14.4 H (9.7-11.4) secs INR 1.35 (0.00-5.90) N/A Sodium (135-145) meq/L Potassium (3.8-5.2) meq/L Chloride (98-112) meq/L Carbon Dioxide (23-33) meq/L Anion Gap (5-20) BUN (7-22) mg/dL Creatinine (0.50-1.20) mg/dL BUN/Creatinine Ratio (6-20) Glucose (78-110) mg/dL Calculated Osmolality (267-292) mOsm/kg Calcium (8.7-10.7) mg/dL Magnesium (1.6-2.4) mg/dL Total Bilirubin (0.3-1.2) mg/dL GGT (8-78) IU/L AST (8-39) IU/L ALT (9-52) IU/L Alkaline Phosphatase (38-126) IU/L Total Protein (6.1-8.0) g/dL Albumin (3.5-4.8) g/dL Globulin (2.50-4.10) g/dL Albumin/Globulin Ratio (1.3-2.0) mg/g Amylase (30-110) U/L Lipase (23-300) IU/L Fluid WBC 0.079 10*3/uL Fluid RBC 0.002 10*6/uL Fluid Polynuclear WBCs 16.5 % Fluid Mononuclear WBCs 83.5 % Peritoneal Color Clear Peritoneal Appearance Clear Peritoneal Volume 16 mL 05/28/17 05/29/17 05/29/17 Range/Units 05:19 06:10 06:10 WBC 4.65 L (4.8-10.8) 10^3/uL RBC 2.89 L (4.20-5.40) 10^6/uL Hgb 9.2 L (12.0-16.0) g/dL Hct 28.0 L (37.0-47.0) % MCV 96.9 (81-99) FL MCH 31.8 H (27-31) PG MCHC 32.9 L (33-37) g/dL RDW Std Deviation 54.9 H (39-50) fL RDW Coeff of Jacki 16.0 H (11.5-14.5) % Plt Count 95 L (140-350) 10*3/uL MPV 9.6 (7.4-12.2) FL Immature Gran % (Auto) 0 (0-5) % Neut % (Auto) 58.7 (50-80) % Lymph % (Auto) 18.7 (10-50) % [place] % (Auto) 15.5 H (5-15) % Eos % (Auto) 6.0 (0-8) % Baso % (Auto) 1.1 H (0-1) % Immature Gran # (Auto) 0 10*3/UL Neut # (Auto) 2.73 10*3/UL Lymph # (Auto) 0.87 10*3/uL [place] # (Auto) 0.72 (0.3-0.8) 10*3/UL Eos # (Auto) 0.28 10*3/UL Baso # (Auto) 0.05 10*3/UL WBC Morphology Comment Normal morphology (NORM) Plt Morphology Comment Normal morphology (NORM) RBC Morph Comment Normal morphology (NORM) PT 14.7 H (9.7-11.4) secs INR 1.38 (0.00-5.90) N/A Sodium 135 (135-145) meq/L Potassium 4.5 (3.8-5.2) meq/L Chloride 109 (98-112) meq/L Carbon Dioxide 20 L (23-33) meq/L Anion Gap 6 (5-20) BUN 23 H (7-22) mg/dL Creatinine 1.0 (0.50-1.20) mg/dL BUN/Creatinine Ratio 23.00 H (6-20) Glucose 87 (78-110) mg/dL Calculated Osmolality 282.0 (267-292) mOsm/kg Calcium 8.5 L (8.7-10.7) mg/dL Magnesium (1.6-2.4) mg/dL Total Bilirubin 1.6 H (0.3-1.2) mg/dL GGT (8-78) IU/L AST 91 H (8-39) IU/L ALT 45 (9-52) IU/L Alkaline Phosphatase 118 (38-126) IU/L Total Protein 5.8 L (6.1-8.0) g/dL Albumin 2.4 L (3.5-4.8) g/dL Globulin 3.4 (2.50-4.10) g/dL Albumin/Globulin Ratio 0.70 L (1.3-2.0) mg/g Amylase (30-110) U/L Lipase (23-300) IU/L Fluid WBC 10*3/uL Fluid RBC 10*6/uL Fluid Polynuclear WBCs % Fluid Mononuclear WBCs % Peritoneal Color Peritoneal Appearance Peritoneal Volume mL 05/29/17 Range/Units 06:10 WBC (4.8-10.8) 10^3/uL RBC (4.20-5.40) 10^6/uL Hgb (12.0-16.0) g/dL Hct (37.0-47.0) % MCV (81-99) FL MCH (27-31) PG MCHC (33-37) g/dL RDW Std Deviation (39-50) fL RDW Coeff of Jacki (11.5-14.5) % Plt Count (140-350) 10*3/uL MPV (7.4-12.2) FL Immature Gran % (Auto) (0-5) % Neut % (Auto) (50-80) % Lymph % (Auto) (10-50) % [place] % (Auto) (5-15) % Eos % (Auto) (0-8) % Baso % (Auto) (0-1) % Immature Gran # (Auto) 10*3/UL Neut # (Auto) 10*3/UL Lymph # (Auto) 10*3/uL [place] # (Auto) (0.3-0.8) 10*3/UL Eos # (Auto) 10*3/UL Baso # (Auto) 10*3/UL WBC Morphology Comment (NORM) Plt Morphology Comment (NORM) RBC Morph Comment (NORM) PT (9.7-11.4) secs INR (0.00-5.90) N/A Sodium 133 L (135-145) meq/L Potassium 4.7 (3.8-5.2) meq/L Chloride 108 (98-112) meq/L Carbon Dioxide 21 L (23-33) meq/L Anion Gap 4 L (5-20) BUN 24 H (7-22) mg/dL Creatinine 1.1 (0.50-1.20) mg/dL BUN/Creatinine Ratio 21.81 H (6-20) Glucose 71 L (78-110) mg/dL Calculated Osmolality 277.0 (267-292) mOsm/kg Calcium 8.1 L (8.7-10.7) mg/dL Magnesium (1.6-2.4) mg/dL Total Bilirubin 1.4 H (0.3-1.2) mg/dL GGT (8-78) IU/L AST 76 H (8-39) IU/L ALT 48 (9-52) IU/L Alkaline Phosphatase 109 (38-126) IU/L Total Protein 5.2 L (6.1-8.0) g/dL Albumin 2.1 L (3.5-4.8) g/dL Globulin 3.1 (2.50-4.10) g/dL Albumin/Globulin Ratio 0.60 L (1.3-2.0) mg/g Amylase (30-110) U/L Lipase (23-300) IU/L Fluid WBC 10*3/uL Fluid RBC 10*6/uL Fluid Polynuclear WBCs % Fluid Mononuclear WBCs % Peritoneal Color Peritoneal Appearance Peritoneal Volume mL [address] [facility] [place] [address] PH: [phone] FAX: [phone] ~DIAGNOSTIC IMAGING REPORT~ Patient: Juliann Velasco : 1940 Sex: F Age: 77 Exam Name: CT Abdomen/Pelvis W Contrast Exam Date: 05/27/17 Report # : [id number] CPT Code: 21398 EMR/MR #: [id number] Ordering: Nate Hurtado Admiting: Primary: Clarence Terry MD Attending: Signed CT ABDOMEN SCAN WITH IV CONTRAST, 05/27/2017 1:40 PM : Clinical History: Abdominal pain with distention. The history on the previous exam indicated the patient had liver cell carcinoma. Previous Exam: 04/21/2017. Scans are performed from the lower lung bases through the liver and kidneys with IV contrast. 55 ml of Isovue 300 was injected IV. The lung bases are clear. The liver is small and has a nodular pattern. The overall size is similar to the previous exam. In the distal portion of the left lower liver, calcific densities are present and these may actually represent iatrogenic embolic material for treatment of the liver cell cancer. No new lesion is seen in the liver. The patient is status post cholecystectomy. There is mild splenomegaly but the spleen appears normal and the portal vein is patent. No esophageal, gastric, or splenic varices are seen. There is a large varix between the portal vein extending through the region of the falciform ligament and then into the abdominal wall. The adrenal glands and the pancreas are normal. Both kidneys are normal in size, shape, position and contour. There is no hydronephrosis or hydroureter. No renal or ureteral calculi are present. There are no abnormal retrocrural or periaortic nodes. Massive ascites is present in the amount is greater than on the previous study. The patient has also developed anasarca since the last exam. READIN. Massive ascites with interval development of anasarca. 2. Small nodular liver consistent with cirrhosis. The patient may have had iatrogenic embolization of a liver tumor in the left lobe. The portal vein is patent. No splenic or obvious gastric or esophageal varices are seen but there is a large varix extending from the anterior abdominal wall into the left through the falciform ligament and then joining the portal vein. There is mild splenomegaly. CT PELVIS SCAN WITH IV CONTRAST, 05/27/2017 1:40 PM: Clinical History: See above. Previous Exam: 04/21/2017. Scans are performed from just superior to the umbilicus to the symphysis pubis with IV contrast. This is the same bolus of contrast used for the CT scans of the abdomen. Massive ascites is present and this is greater than on the previous exam. The appendix is not identified with certainty but there is no inflammatory mass either in the cecum or in the right lower quadrant. The small bowel, terminal ileum, and ileocecal valve are normal. The colon is also normal. There are no hernias. The uterus and both ovaries are atrophic but normal. READING: Massive ascites. This has increased since the last exam. Dictated By: 05/27/17 1515 NGUYỄN HURT MD. Signed By: 05/27/17 1532 NGUYỄN HURT MD. Patient Problems - Patient Problem List (1) Hepatic cirrhosis Current Visit: Yes Status: Acute Code(s): K74.60 - Unspecified cirrhosis of liver Qualifiers: Hepatic cirrhosis type: unspecified hepatic cirrhosis Ascites presence: with ascites Qualified Code(s): K74.60 - Unspecified cirrhosis of liver Category: Medical (2) Ascites Current Visit: Yes Status: Acute Comment: Continue Aldactone and Lasix. Code(s): R18.8 - Other ascites Qualifiers: Ascites type: other type Qualified Code(s): R18.8 - Other ascites Category: Medical (3) Liver cancer Current Visit: Yes Status: Suspected Code(s): C22.9 - Malignant neoplasm of liver, not specified as primary or secondary Qualifiers: Liver malignancy type: hepatocellular carcinoma Qualified Code(s): C22.0 - Liver cell carcinoma Category: Medical (4) Hypothyroidism Current Visit: Yes Status: Chronic Comment: Same medication Code(s): E03.9 - Hypothyroidism, unspecified Qualifiers: Hypothyroidism type: acquired Qualified Code(s): E03.9 - Hypothyroidism, unspecified Category: Medical (5) Anemia Current Visit: No Status: Acute Comment: Blood count is better, continue iron and multivitamins. Continue Protonix. We couldn't start her on propranolol because of the finding that suggested spontaneous bacterial peritonitis Code(s): D64.9 - Anemia, unspecified Qualifiers: Anemia type: other cause Other causes of anemia: other cause, not classified Qualified Code(s): D64.89 - Other specified anemias Category: Medical
[2017-05-30 12:24] LABS: TOTAL PROTEIN, BODY FLUID SEE COMMENTS g/dL
[2017-05-31 16:20] LABS: SOURCE, BODY FLUID ALBUMIN PERITONEAL
== END 2017-05-29 15:39 | disposition home or self-care (01) | DRG 433 ==
LOC: ER 13:17 → MED/SURG 17:08
PROVIDERS: ADMIT Family Medicine; ATTEND Family Medicine

== ENCOUNTER 2017-10-25 11:59 | Inpatient (IN) ==
[2017-10-25] MEDS ORDERED: ONDANSETRON 4 MG/2 ML VIAL IVP PRN (12:28)
[2017-10-25] MEDS ORDERED: DOCUSATE 100 MG CAPSULE PO PRN (12:28)
[2017-10-25] MEDS ORDERED: NORMAL SALINE 10 ML SYRINGE FLUSH IVP PRN (12:28)
[2017-10-25] MEDS ORDERED: LIDOCAINE W/ SODIUM BICARB 0.5 ML SYR SUBD PRN (12:28)
[2017-10-25] MEDS ORDERED: ACETAMINOPHEN 325 MG TABLET PO PRN (12:28)
[2017-10-25] MEDS ORDERED: CALCIUM CARBONATE 500 MG (TUMS) CHEWABLE TABLET PO PRN (12:28)
[2017-10-25] MEDS ORDERED: FAMOTIDINE 20 MG TABLET PO PRN (12:30)
[2017-10-25] MEDS: FUROSEMIDE 20 MG TABLET PO SCH (13:04)
[2017-10-25] MEDS: Potassium Chloride Tab 10 MEQ TAB PO SCH (13:04)
[2017-10-25] MEDS ORDERED: Spironolactone Tab 25 MG TAB PO SCH (14:30)
--- NOTE | 2017-10-25 16:04 | PDOC ---
HPI - History of Present Illness Date of Service: 10/25/17 Time of Service: 16:00 Chief Complaint: Weight gain and edema History of Present Illness: This very pleasant 77 year old female that was seen by Dr. Terry in the clinic today for follow-up on her cirrhosis and other medical issues. She complained to him about 30 pound weight gain after her diuretics were recently stopped. Apparently her liver specialist and general warehouse worker felt that her kidney function was getting a little worse on diuretics and so pulled them off. He then gave her 10 mg of Lasix back. This was about 4 weeks ago. The patient states that she gained about 30 pounds and then she was placed back on spironolactone by Dr. Terry a week ago. Her creatinine is remaining around 1.3. This is even in the setting of restarting spironolactone and she lost only about 2 pounds of fluid weight. She's been feeling miserable, been limiting her activities she's not been able to walk long distances or comply with her physician's instructions to walk 2 miles a day she is admitted for further evaluation here. She denies any chest pain, shortness breath or dyspnea. But she states that she's very uncomfortable in terms of her abdominal fluid and she would like that drained if possible. She's had about 3 episodes of paracentesis for her ascites. She denies any confusion. She denies any hepatic encephalopathy. She denies any fevers or chills. She states her lower extremities and been quite swollen and she's been retaining fluid there and it's been quite limiting again in terms of her activities. She' s been taking potassium with her Lasix but has not been absorbing it. She states that she is actually seen that capsule after she swallows it not completely dissolved in her stool. Past Medical History Medical History: 1. 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 2. Hypertensive gastropathy. 3. Gastritis. 4. Hypertension. 5. Portal hypertension. 6. Hypothyroidism. 7. Liver cancer, status post radiation therapy in [place] Surgical History: History of previous cholecystectomy. Liver biopsy. Radioablation therapy for liver cancer Family History: Reviewed an Not Pertinent Pertinent Family History: No family history of heart disease Past Social History: Does not smoke or drink. 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 Has healthy children. Is . Her niece lives with her. Children are healthy. Tobacco Use: Never Smoker In the Past 12 Months, Have Used or Abuse Any of the Following Substance: None Alcohol Use: None Medication / Allergies Home Medications: Home Medications 3 Medication Instructions Recorded Confirmed Type levothyroxine 50 mcg tablet 50 mcg PO QDAY #90 tab 04/19/17 10/25/17 Rx multivit with 1 tab PO QDAY tab 04/19/17 10/25/17 History wqzypxfy-bkjk-FJ-lutein 8 mg iron-400 mcg-300 mcg tablet Bacillus coagulans 250 million 250 cell PO QDAY tab 06/07/17 10/25/17 History cell chewable tablet propranolol 10 mg tablet 5 mg PO TID #135 tab 06/07/17 10/25/17 Rx famotidine 20 mg tablet 20 mg PO QDAY PRN #30 tab 10/11/17 10/25/17 Rx furosemide 20 mg tablet 10 mg PO QDAY #30 tab 10/11/17 10/25/17 Rx potassium chloride ER 10 mEq 10 meq PO QDAY #30 tab 10/11/17 10/25/17 Rx tablet,extended release Allergies/Adverse Reactions: Allergies 3 Allergy/AdvReac Type Severity Reaction Status Date / Time Sulfa (Sulfonamide Allergy Intermediate HIVES Verified 10/25/17 12:58 Antibiotics) Review of Systems - Review of Systems All Systems: Reviewed & No Additional Complaints Except as Stated (I did a 12 point review systems and other than that discussed in the history of present illness is negative with the exceptions noted below.) - Constitutional Constitutional: REPORTS: Weakness - Respiratory Respiratory: REPORTS: Negative System Review - Cardiovascular Cardiovascular: REPORTS: Negative System Review - Gastrointestinal Gastrointestinal / Abdominal: REPORTS: Other (Increasing ascites. Abdominal discomfort.) - Genitourinary Genitourinary: REPORTS: Negative System Review - Musculoskeletal Musculoskeletal: REPORTS: Other (Swelling of lower extremities.) - Neurological Neurologic: REPORTS: Negative System Review Exam - Vitals Vital Signs: Vital Signs Temperature 97.2 F Temperature Source Temporal Artery Scan Pulse Rate [Pulse Oximeter] 65 Respiratory Rate 16 Blood Pressure [Left Arm] 135/72 Pulse Ox 96 Oxygen Delivery Method Room Air Height 4 ft 11 in Weight 132 lb 6.4 oz - General General Appearance: No Acute Distress, Cooperative - Head Head Exam: Normal Inspection, Normocephalic, Atraumatic - Eye Eye Exam: POSITIVE: No Scleral Icterus - ENT ENT Exam: POSITIVE: Mucous Membranes Moist - Neck Neck Exam: Normal Inspection, No Tenderness, No Lymphadenopathy, No Thyromegaly - Respiratory Respiratory Exam: POSITIVE: Breathing Non Labored, Normal to Percussion and Palpation, Crackles (Right lower base) - Cardiovascular Cardiovascular Exam: POSITIVE: RRR, No Murmur, No Clicks, No Gallops, No Rubs, No JVD - GI/Abdominal GI/Abdominal Exam: POSITIVE: Normal Bowel Sounds, Non Tender, Positive for Ascites (Tense ascites) - Rectal Rectal Exam: POSITIVE: Deferred - External Exam: POSITIVE: Deferred Exam: POSITIVE: Deferred - Extremities Extremities Exam: POSITIVE: No Clubbing Present, No Cyanosis Present, +3 Edema - Back Back Exam: POSITIVE: No CVA Tenderness - Neurological Neurological Exam: POSITIVE: Alert, Oriented x 3, No Facial Droop, Speech Intact / Clear, Moves All Extremities Equally - Psychiatric Psychiatric Exam: POSITIVE: Normal Affect, Normal Mood Results - Labs Additional Lab Results: 01/10/13 10/18/17 10/18/17 15:54 11:37 11:37 WBC RDW 18.3 H Hct Plt Count Sodium Potassium Chloride Carbon Dioxide Anion Gap BUN Creatinine BUN/Creatinine Ratio Glucose Total Bilirubin AST ALT Alkaline Phosphatase Ammonia < 9 L Total Protein Albumin Globulin Albumin/Globulin Ratio TSH 5.53 H Free T4 2.07 H 10/22/17 10/22/17 13:26 13:26 WBC 6.18 RDW Hct 31.0 L Plt Count 130 L Sodium 137 Potassium 4.1 Chloride 103 Carbon Dioxide 24 Anion Gap 10 BUN 28 H Creatinine 1.3 H BUN/Creatinine Ratio 21.53 H Glucose 84 Total Bilirubin 1.5 H AST 80 H ALT 48 Alkaline Phosphatase 128 H Ammonia Total Protein 6.4 Albumin 2.4 L Globulin 4.0 Albumin/Globulin Ratio 0.60 L TSH Free T4 10/18/17 11:37 Tumor Marker AFP Serial 2.0 Assessment and Plan - Patient Problems (1) Ascites Current Visit: No Status: Chronic Code(s): R18.8 - Other ascites Qualifiers: Ascites type: other type Qualified Code(s): R18.8 - Other ascites (2) Cryptogenic cirrhosis of liver Current Visit: Yes Status: Acute Onset Date: 03/10/12 Code(s): K74.69 - Other cirrhosis of liver (3) Hypothyroid Current Visit: Yes Status: Chronic Qualifiers: Hypothyroidism type: acquired Qualified Code(s): E03.9 - Hypothyroidism, unspecified (4) Benign hypertension Current Visit: Yes Status: Chronic - Assessment / Plan Additional Assessment/Plan Details: Admit the patient. This was done directly from the clinic. In terms of the diuretics, may be useful to use some albumin post-diuresis and also a paracentesis may be helpful in removing some of the abdominal fluid. Given that she has edema in the lower extremity is in the systolic of 135 currently, I think she would tolerate a paracentesis fairly well and it may help accelerate some of the fluid loss. She has had some abdominal discomfort, so I'll send some studies to make sure we are not dealing with spontaneous bacterial peritonitis. We will see how she responds to diuretics, check labs tomorrow, and again, use albumin. Try to discuss with her primary physician regarding thoughts about Synthroid dosing given that she still has an elevated TSH. T4 level is a little elevated. I'm not so sure that the free T4 is truly accurate. Patient is full code. Check urine electrolytes to make sure sodium and potassium are in good ratios to reflect diuretics working. With creatinine at 1.3, I do not think we have much room to push diuretics, so we may have to evaluate all this in the setting of known portal hypertension, very small varices, and propranolol therapy. Plan above discussed with patient and she agreed. She wishes to proceed with a paracentesis and diuresis post paracentesis.
[2017-10-25] MEDS ORDERED: Lidocaine Inj 1% 20 ML ONE (16:50)
[2017-10-25 18:02] LABS: WBC, BODY FLUID 0.089 10*3/uL
[2017-10-25] MEDS: Propranolol Tab 10 MG TAB PO SCH ×2 (18:06→20:04)
[2017-10-25] MEDS: Albumin Human Soln 25% 25 GM/100 ML IV.SOLN IV SCH (19:23)
[2017-10-26 05:22] LABS: BASOPHILS # (AUTO) 0.03 10*3/UL; EOSINOPHILS # (AUTO) 0.25 10*3/UL; EOSINOPHILS % (AUTO) 8.6 % (0-8); Hematocrit [HCT] 25.6 % (37.0-47.0); Hemoglobin [HGB] 8.6 g/dL (12.0-16.0); LYMPHOCYTES # (AUTO) 0.91 10*3/uL; MEAN CORPUSCULAR HEMOGLOBIN 32.6 PG (27-31); MEAN CORPUSCULAR HGB CONC 33.6 g/dL (33-37); MEAN PLATELET VOLUME 10.8 FL (7.4-12.2); MONOCYTES # (AUTO) 0.42 10*3/UL (0.3-0.8); MONOCYTES % (AUTO) 14.4 % (5-15); NEUTROPHILS % (AUTO) 44.7 % (50-80); RED BLOOD COUNT 2.64 10^6/uL (4.20-5.40)
[2017-10-26 05:32] LABS: BLOOD UREA NITROGEN 24 mg/dL (7-22); BUN/CREATININE RATIO 21.81 (6-20); SERUM ALBUMIN 2.3 g/dL (3.5-4.8)
[2017-10-26] MEDS: LEVOTHYROXINE 50 MCG TABLET PO SCH (05:51)
[2017-10-26 05:53] LABS: PLATELET MORPHOLOGY COMMENT NORMAL MORPHOLOGY (NORM); RBC MORPHOLOGY COMMENT SEE COMMENTS (NORM); WBC MORPHOLOGY COMMENT NORMAL MORPHOLOGY (NORM)
[2017-10-26] MEDS: Potassium Chloride Tab 10 MEQ TAB PO SCH (08:50)
[2017-10-26] MEDS: FUROSEMIDE 20 MG TABLET PO SCH (08:50)
[2017-10-26] MEDS: Spironolactone Tab 25 MG TAB PO SCH (08:50)
[2017-10-26] MEDS: Multivitamin Tab 1 TAB PO SCH (08:50)
[2017-10-26] MEDS: [UNRECOGNIZED DRUG - OTHER] PO SCH (08:50)
[2017-10-26] MEDS: Propranolol Tab 10 MG TAB PO SCH (08:50)
--- NOTE | 2017-10-26 15:22 | PDOC(PROG) ---
Date and Time of Service: 10/26/2017, 1518 Interval History: Feels good today. No chest pain, no shortness breath, no nausea or vomiting. Has not had any leakage from paracentesis site. Able to ambulate fairly well. Not feeling lightheaded or dizzy. Systolics have been in the low 100s. Objective : Data - Labs CBC and BMP: 10/26/17 04:30 10/26/17 04:30 Additional Lab Results: 10/26/17 10:50 Ur Random Sodium 23 L Ur Random Potassium 16.0 L I reviewed the data from the paracentesis, there is no evidence of spontaneous bacterial peritonitis. Cultures thus far negative. Objective : Exam - General General Appearance: No Acute Distress, Cooperative Additional General Exam Details: Vital Signs - Last Taken Temperature 97.1 F 10/26/17 11:56 Pulse Rate 68 10/26/17 11:56 Respiratory Rate 16 10/26/17 11:56 Blood Pressure 97/40 10/26/17 11:56 Pulse Ox 97 10/26/17 11:56 - Eye Eye Exam: No Scleral Icterus - ENT ENT Exam: Mucous Membranes Moist - Respiratory Respiratory Exam: Clear to Auscultation - Bilaterally, Breathing Non Labored - Cardiovascular Cardiovascular Exam: RRR, No Murmur, No Clicks, No Gallops, No Rubs, No JVD - GI/Abdominal GI/Abdominal Exam: Normal Bowel Sounds, Non Tender, Non Distended, Soft Additional GI/Abdominal Exam Details: Paracentesis site without leakage or drainage. I do have 1 simple suture there. - Extremities Extremities Exam: No Clubbing Present, No Cyanosis Present, +2 Edema (Edema mildly improved in the lower extremities.) - Neurological Neurological Exam: Alert, Oriented x 3, Normal Gait, No Facial Droop, Speech Intact / Clear, Moves All Extremities Equally Assessment and Plan - Patient Problems (1) Ascites Current Visit: Yes Status: Acute Code(s): R18.8 - Other ascites Qualifiers: Ascites type: other type Qualified Code(s): R18.8 - Other ascites (2) Cryptogenic cirrhosis of liver Current Visit: Yes Status: Acute Onset Date: 03/10/12 Code(s): K74.69 - Other cirrhosis of liver (3) Hypothyroid Current Visit: Yes Status: Chronic Qualifiers: Hypothyroidism type: acquired Qualified Code(s): E03.9 - Hypothyroidism, unspecified (4) Benign hypertension Current Visit: Yes Status: Chronic - Assessment / Plan Additional Assessment/Plan Details: Despite blood pressures being systolics in the 90s and 100s, patient is tolerating these without lightheadedness or dizziness. I think at this point, just stop the propranolol. I think the more important issue is controlling the ascites and fluid overload, and the renal function is maintaining normal state even with large volume paracentesis and with diuretics. I would like to continue the spironolactone and Lasix. The sodium to potassium ratio of greater than 1 suggests that the patient is at a good diuretic dosing. If all goes well, may consider discharge tomorrow with continued outpatient follow-up. Check labs again in a.m. She does have known hypertension and CT scan has shown varices, pleasant she's not had any complications from the Celexa more comfortable stopping propranolol at this point given the symptom medic issues the patient has with her cirrhosis. I will also discuss this issue with her primary physician.
[2017-10-27] MEDS: LEVOTHYROXINE 50 MCG TABLET PO SCH (05:10)
[2017-10-27 05:39] VITALS: RESP 16
[2017-10-27] MEDS: FUROSEMIDE 20 MG TABLET PO SCH (07:28)
[2017-10-27] MEDS: Potassium Chloride Tab 10 MEQ TAB PO SCH (08:08)
[2017-10-27] MEDS: Spironolactone Tab 25 MG TAB PO SCH (08:08)
[2017-10-27] MEDS: [UNRECOGNIZED DRUG - OTHER] PO SCH (08:08)
[2017-10-27] MEDS: Multivitamin Tab 1 TAB PO SCH (08:08)
[2017-10-27 10:17] LABS: BLOOD UREA NITROGEN 22 mg/dL (7-22); BUN/CREATININE RATIO 18.33 (6-20); SERUM ALBUMIN 2.5 g/dL (3.5-4.8)
[2017-10-27 11:57] VITALS: BP 114/51; TEMP 97.5; O2SAT 96
--- NOTE | 2017-10-27 13:41 | DCSUMMARY ---
Hospitalization Summary Admit Date: 10/25/2017 Discharge Date: 10/27/17 Primary Diagnosis:: ascites and fluid overload, improved Hospital Course: This very pleasant 77 year old female with known cryptogenic cirrhosis who had had some diuretic dose adjustments due to creatinine elevation. Her creatinine is now at about the 1.1 range which is around her baseline, and she presented with increased weight gain, some abdominal discomfort, mostly left-sided, and increased lower extremity edema. She had tense ascites and we did a paracentesis and removed 3200 and gave some albumin. We kept her diuretics at 20 mg of Lasix and 25 mg of spironolactone and the patient actually did diurese , with her sodium and potassium ratio at greater than 1 in the urine. Patient is doing much better today. Her edema has significantly improved her lower extremities. At her abdominal site for paracentesis, we did put one stitch and and will take that out. She does not complain of any chest pain, shortness breath, nausea or vomiting Given that the blood pressures are still fairly low for this patient, I think that we should just stop propranolol at this point. She's not had any bleeding issues from her varices and I think the big issue she really has is her ascites and fluid overload to control. So rather than take the head on the blood pressure, I would rather that we just go with the diuretics at this point. Assessment and Plan: 1. As per discharge assessments noted 2. Disposition: Patient will be discharged home 3. Condition on discharge, stable and improved. 4. Diet: regular diet, low-salt diet 5. Activities: resume normal activities 6. Follow-Up: 1. Dr. Terry in a week 2. Basic metabolic panel 1 day prior to seeing Dr. Terry 7. Medications at the Time of Discharge: Home Medications 3 Medication Instructions Recorded Confirmed Type levothyroxine 50 mcg tablet 50 mcg PO QDAY #90 tab 04/19/17 10/25/17 Rx multivit with 1 tab PO QDAY tab 04/19/17 10/25/17 History uizuncjl-rots-GG-lutein 8 mg iron-400 mcg-300 mcg tablet Bacillus coagulans 250 million 250 cell PO QDAY tab 06/07/17 10/25/17 History cell chewable tablet famotidine 20 mg tablet 20 mg PO QDAY PRN #30 tab 10/11/17 10/25/17 Rx potassium chloride ER 10 mEq 10 meq PO QDAY #30 tab 10/11/17 10/25/17 Rx tablet,extended release Furosemide 20 mg PO QDAY #30 tab 10/27/17 Rx Spironolactone [Aldactone] 25 mg PO DAILY #30 tab 10/27/17 Rx 8. Time, care, counseling and coordination of care for this discharge is greater than 30 minutes. Exam - Vitals Vital Signs: Vital Signs Temperature 97.5 F Temperature Source Temporal Artery Scan Pulse Rate [Apical] 70 Pulse Rate [Pulse Oximeter] 67 Respiratory Rate 16 Blood Pressure [Right Arm] 114/51 Blood Pressure [Left Arm] 135/72 Pulse Ox 96 Oxygen Delivery Method Room Air Height 4 ft 11 in Weight 124 lb 5 oz - General General Appearance: No Acute Distress, Cooperative - Eye Eye Exam: POSITIVE: No Scleral Icterus - ENT ENT Exam: POSITIVE: Mucous Membranes Moist - Respiratory Respiratory Exam: POSITIVE: Clear to Auscultation - Bilaterally, Breathing Non Labored - Cardiovascular Cardiovascular Exam: POSITIVE: RRR, No Murmur, No Clicks, No Gallops, No Rubs, No JVD - GI/Abdominal GI/Abdominal Exam: POSITIVE: Normal Bowel Sounds, Non Tender, Non Distended, Soft Additional GI/Abdominal Exam Details: Insertion site for needle for paracentesis looks clean, dry, intact. - Extremities Extremities Exam: POSITIVE: No Clubbing Present, No Cyanosis Present, +1 Edema Data Peritnent Studies: 10/26/17 10/26/17 10/26/17 04:30 04:30 10:50 WBC 2.91 L Hgb 8.6 L Hct 25.6 L Plt Count 78 L PT 16.5 H INR 1.55 Sodium Potassium Chloride Carbon Dioxide Anion Gap BUN Creatinine BUN/Creatinine Ratio Glucose Calculated Osmolality Calcium Total Bilirubin AST ALT Alkaline Phosphatase Total Protein Albumin Globulin Albumin/Globulin Ratio Ur Random Sodium 23 L Ur Random Potassium 16.0 L 10/27/17 10:00 WBC Hgb Hct Plt Count PT INR Sodium 139 Potassium 4.0 Chloride 103 Carbon Dioxide 25 Anion Gap 11 BUN 22 Creatinine 1.2 BUN/Creatinine Ratio 18.33 Glucose 139 H Calculated Osmolality 292.0 Calcium 8.6 L Total Bilirubin 1.2 AST 58 H ALT 38 Alkaline Phosphatase 91 Total Protein 5.7 L Albumin 2.5 L Globulin 3.2 Albumin/Globulin Ratio 0.70 L Ur Random Sodium Ur Random Potassium The culture from the paracentesis fluid was negative. Patient Problems - Patient Problem List (1) Ascites Current Visit: Yes Status: Acute Code(s): R18.8 - Other ascites Qualifiers: Ascites type: other type Qualified Code(s): R18.8 - Other ascites Category: Medical (2) Cryptogenic cirrhosis of liver Current Visit: Yes Status: Acute Onset Date: 03/10/12 Code(s): K74.69 - Other cirrhosis of liver Category: Medical (3) Hypothyroid Current Visit: Yes Status: Chronic Qualifiers: Hypothyroidism type: acquired Qualified Code(s): E03.9 - Hypothyroidism, unspecified Category: Medical (4) Benign hypertension Current Visit: Yes Status: Chronic Category: Medical
[2017-10-29 02:05] LABS: SOURCE, BODY FLUID ALBUMIN ABDOMEN
--- NOTE | 2017-11-04 11:09 | PROCEDURE1 ---
Procedure - - Date and Time of Service: 10/25/2017, 1700 Procedure Performed: Paracentesis : Without Imaging Procedure Note: Procedure performed: Paracentesis Consent was obtained from the patient and the family. Indication for procedure was the following: Indication for procedure: Ascites/cirrhosis Description of procedure: The patient was prepped and draped in the usual fashion after ultrasound guidance helped us isolate the largest ascites pocket we could find. In this case it was located at left lower quadrant. Chlorhexidine was used to cleanse the skin. Lidocaine was used for local anesthesia. A #10 blade was then used perform a small dermatotomy. A fenestrated catheter was inserted over a large- bore needle then inserted using a Z-line approach with a 60 mL syringe attached. When withdrawing on the 60 mL syringe, peritoneal fluid was noted and 60 mL was drawn and then removed along with the large bore needle. The catheter was left in peritoneal space as it was advanced over the needle. Note that the needle had a blunt tip to it. Peritoneal fluid was sent for Gram stain and culture. The fluid appeared yellow and straw-colored on my view. A total of 3200 mL was withdrawn via Vacutainer bottles. The catheter was then withdrawn. The insertion site was dressed with gauze and Tegaderm, with no evidence of peritoneal leak or blood loss. I did have to use a single stitch to close. No evidence of bleeding, and hemostasis was achieved. The patient tolerated the procedure well with no evidence of complications. Anesthesia: Local with lidocaine. Estimated blood loss: None Disposition: Patient is admitted to the hospital in serious condition. Complications: None apparent at time of procedure.
== END 2017-10-27 14:16 | disposition home or self-care (01) | DRG 948 ==
LOC: MED/SURG 12:13
PROVIDERS: ADMIT Family Medicine; ATTEND Family Medicine